=== PATIENT | male | born 1985 | race Two or more races ===

== ENCOUNTER 2020-05-20 21:57 | Emergency (ER) | payer SELFPAY ==
[~2020-05-20] VITALS: Ht 165.1 cm; Wt 68.0 kg
[2020-05-20] MEDS ORDERED: ACETAMINOPHEN 325MG TABLET PO STA (22:31)
[2020-05-20] MEDS ORDERED: KETOROLAC 30MG/ML VIAL IV STA (22:31)
[2020-05-20] MEDS ORDERED: FAMOTIDINE 20MG TABLET PO ONE (22:45)
[2020-05-20 23:20] LABS: BASOPHILS % 0.4 % (0.0-2.0); EOSINOPHILS % 0.5 % (0.0-5.0); HEMATOCRIT. 41.1 % (42.0-52.0); HEMOGLOBIN. 13.5 g/dL (14.0-18.0); LYMPHOCYTES % 13.1 % (20.0-50.0); MEAN CORPUSCULAR HEMOGLOBIN 21.6 pg (28.0-32.0); MEAN CORPUSCULAR VOLUME 65.7 fL (80.0-94.0); MEAN PLATELET VOLUME 9.7 fl (7.4-10.4); PLATELET 218 x1000/uL (130-400); RED BLOOD CELL COUNT 6.25 mill/uL (4.7-6.1); RED CELL DISTRIBUTION WIDTH 16.4 % (11.6-14.6)
[2020-05-20 23:23] LABS: CHLORIDE 106 mEq/L (98-107)
[2020-05-20 23:35] LABS: CLARITY URINE CLEAR (CLEAR); COLOR URINE YELLOW (YELLOW); KETONES URINE NEGATIVE (NEGATIVE); LEUKOCYTE ESTERASE URINE NEGATIVE (NEGATIVE); NITRITE URINE NEGATIVE (NEGATIVE); OCCULT BLOOD URINE 2+ (NEGATIVE); PROTEIN URINE TRACE (NEGATIVE); SPECIFIC GRAVITY URINE 1.023 (1.005-1.030)
[2020-05-20 23:55] LABS: PLATELET ESTIMATE NORMAL
[2020-05-21 03:29] VITALS: BP 125/63
== END 2020-05-21 03:34 | disposition home or self-care (01) ==
LOC: ER 21:57
DX: R07.89 Other chest pain (principal); R10.13 Epigastric pain
CPT/HCPCS: 36415; 71045; 76705; 80053; 81003; 83690; 84484; 85025; 93005; 96374; 99285; J1885